=== PATIENT | female | born 1960 | race Caucasian/White ===

== ENCOUNTER → 2020-05-19 | Outpatient (CLI) | payer BC ==
--- NOTE | 2020-05-19 14:35 | Diagnostic Imaging Report ---
Exam: MRI left tibia and fibula without contrast. Date: May 19, 2020. Indication: 60-year-old female, left calf pain. Injured playing tennis. Concern for Achilles tendon tear. Comparison: None. Technique: Multiple noncontrast MRI sequences of the tibia and fibular were obtained. Findings: The Achilles tendon is not particularly optimally evaluated on this study and would be more optimally evaluated on a targeted dedicated MRI ankle exam. That said, there is a complete tear of the Achilles tendon on the left with an estimated length of tendon retraction of 3.5 cm. This is based on cross referencing the axial images. There is feathery edema in the soleus muscle consistent with low-grade muscle strain. There is fairly generalized subcutaneous edema extending from the level of the proximal tibial diaphysis to the level of the tibiotalar joint. There is no well-demarcated drainable focal fluid collection. There is fluid in the popliteal fossa without visualized sizable Mitchell's cyst. The complete superior extent of the popliteal fossa is not in the imaged field of view. The additional imaged tendons are intact in their visualized portions. The additional intramuscular signal is unremarkable. There is no acute fracture, bone contusion, or evidence of osteonecrosis. There is no evidence of stress reaction. Impression: 1. Complete tear of the Achilles tendon with estimated tendon retraction of 3.5 cm. This exam is not the most optimal method for evaluating the Achilles tendon which would be targeted ankle MRI. 2. Low level edema throughout the soleus muscle consistent with low-grade muscle strain. 3. No acute fracture, bone contusion, or evidence of stress reaction. Dictated by: Dictated on workstation # [id number]
== END ==
LOC: RAD 11:14
PROVIDERS: ATTEND Orthopaedic Surgery
DX: S86.012A Strain of left Achilles tendon, initial encounter (principal)

== ENCOUNTER 2020-06-01 14:23 | Emergency (ER) | payer BC ==
[~2020-06-01] VITALS: Ht 162.5 cm; Wt 72.5 kg
[2020-06-01 15:19] LABS: BASOPHILS % (AUTO) 0 % (0-10); EOSINOPHILS # (AUTO) 0.1 10^3/uL (0.0-0.3); EOSINOPHILS % (AUTO) 2 % (0-10); HEMATOCRIT 43 % (35-52); HEMOGLOBIN 14.3 G/DL (11.5-16.0); LYMPHOCYTES # (AUTO) 1.8 X 10^3 (1.0-4.0); LYMPHOCYTES % (AUTO) 30 % (12-44); MEAN CORPUSCULAR HEMOGLOBIN 32 PG (25-34); MEAN CORPUSCULAR HGB CONC 33 G/DL (32-36); MEAN CORPUSCULAR VOLUME 95 FL (80-99); MEAN PLATELET VOLUME 8.9 FL (7.4-10.4); MONOCYTES # (AUTO) 0.5 X 10^3 (0.0-1.0); MONOCYTES % (AUTO) 9 % (0-12); NEUTROPHILS # (AUTO) 3.6 X 10^3 (1.8-7.8); NEUTROPHILS % (AUTO) 60 % (42-75); PLATELET COUNT 357 10^3/uL (130-400)
[2020-06-01] MEDS ORDERED: NS IV 1000 ML 1,000 ML IV ONE (15:20)
[2020-06-01 15:27] LABS: ALBUMIN 4.3 GM/DL (3.2-4.5)
[2020-06-01 15:28] LABS: POTASSIUM 3.7 MMOL/L (3.6-5.0)
[2020-06-01 15:29] LABS: CALCIUM 9.3 MG/DL (8.5-10.1)
[2020-06-01 15:30] LABS: TOTAL PROTEIN 7.7 GM/DL (6.4-8.2)
[2020-06-01 15:32] LABS: BILIRUBIN,TOTAL 0.4 MG/DL (0.1-1.0)
[2020-06-01 15:34] LABS: CREATININE SERUM 1.03 MG/DL (0.60-1.30)
--- NOTE | 2020-06-01 15:35 | NUR ---
BLANKET PROVIDED FOR PATIENT.
[2020-06-01 15:36] LABS: MAGNESIUM 2.2 MG/DL (1.6-2.4)
[2020-06-01 15:37] LABS: FIBRIN DEGRADATION PRODUCTS 0.52 UG/ML (0.00-0.49); INR 0.8 (0.8-1.4)
--- NOTE | 2020-06-01 15:51 | ED Chest Pain ---
General Chief Complaint: Chest Pain Stated Complaint: CP Nursing Triage Note: PATIENT C/ CHEST PAIN AT HOME AROUND 1315 AT THAT TIME VERBAIZES PAIN WAS 9/10 WHICH BEGAN IN THE MIDDLE OF HER CHEST AND WENT THROUGH TO HER BACK, WITH SWEATING, DENIES NAUSEA OR VOMITING. PATIENT RATES HER PAIN AT A 0/10 AT THIS TIME. A/OX4, RESTING IN BED QUIETLY CALL LIGHT IN REACH Nursing Sepsis Screen: No Definite Risk Source: patient Exam Limitations: no limitations History of Present Illness Date Seen by Provider: Jun 01, 2020 Time Seen by Provider: 14:42 Initial Comments Here with report of chest pain that started at around 1:15. States it began in the epigastric and low middle of the chest and radiated straight back and to the right below the shoulder blade. Onset about 45 minutes to an hour after eating lunch. Recently had left Achilles tendon repair and is on full dose aspirin daily. She did take that today. When she had the pain, she called her doctor recommended she come to the emergency department. She had negative COVID-19 screening last and has been at home otherwise since. Her adult children did visit from [place] on Friday. Nobody in the family is sick and she is otherwise not left the house. Still has her gallbladder. No history of cardiac disease. Pain onset associated with sweating but all of that has resolved since prior to arrival. Pain lasted about 45 minutes. No nausea or vomiting. No reported diarrhea or problems went to the bathroom. Otherwise been doing fine since the surgery. Timing/Duration: 1 hour, resolved prior to arrival Severity/Quality: moderate, aching Location: central Radiation: back Prior CP/Workup: no prior chest pain, no prior cardiac workup, non-cardiac ASA po SPRAY DYER: Yes NTG SL SPRAY DYER: No Associated Symptoms: abdominal pain, back pain, diaphoresis; No fever/chills, No nausea/vomiting, No shortness of breath, No weakness Allergies and Home Medications Allergies Coded Allergies: Penicillins (Verified Allergy, Unknown, 06/01/20) Sulfa (Sulfonamide Antibiotics) (Verified Allergy, Unknown, 06/01/20) amoxicillin (Verified Allergy, Unknown, 06/01/20) cephalexin (Verified Allergy, Unknown, 06/01/20) clindamycin (Verified Allergy, Unknown, 06/01/20) dexamethasone (Verified Allergy, Unknown, 06/01/20) ibuprofen (Verified Adverse Reaction, Unknown, 06/01/20) CANNOT TAKE naproxen (Verified Adverse Reaction, Unknown, 06/01/20) CANNOT TAKE Home Medications Aspirin 325 Mg Tablet, 325 MG PO DAILY, (Reported) Patient Home Medication List Home Medication List Reviewed: Yes Review of Systems Review of Systems Constitutional: see HPI EENTM: No Symptoms Reported Respiratory: Denies Cough, Denies Shortness of Air Cardiovascular: Chest Pain; Denies Edema Gastrointestinal: Denies Diarrhea, Denies Nausea, Denies Vomiting Genitourinary: No Symptoms Reported Musculoskeletal: see HPI, other (left lower extremity splint noted) Skin: no symptoms reported Psychiatric/Neurological: No Symptoms Reported All Other Systems Reviewed Negative Unless Noted: Yes Past Pcyjyvg-Ibvbjo-Zqopcz Hx Past Med/Social Hx: Reviewed Nursing Past Med/Soc Hx Patient Social History Alcohol Use: Regular Use Alcohol Beverage of Choice: Wine Recreational Drug Use: No Smoking Status: Never a Smoker 2nd Hand Smoke Exposure: No Recent Foreign Travel: No Contact w/Someone Who Travel: No Recent Infectious Disease Expo: No Physical Abuse: No Sexual Abuse: No Mistreated: No Fear: No Past Medical History Surgeries: Yes Appendectomy, Hysterectomy, Orthopedic Respiratory: No Cardiac: No Neurological: No Family Medical History Reviewed Nursing Family Hx No Pertinent Family Hx Physical Exam Vital Signs Vital Signs - First Documented 06/01/20 14:30 Temp 36.7 Pulse 92 Resp 18 B/P (MAP) 157/90 (112) Pulse Ox 98 O2 Delivery Room Air Capillary Refill : Less Than 3 Seconds Height, Weight, BMI Height: '" Weight: lbs. oz. kg; 27.00 BMI Method: General Appearance: No Apparent Distress, WD/WN Neck: Non Tender, Supple Respiratory: Lungs Clear, Normal Breath Sounds Cardiovascular: Regular Rate, Rhythm, No Murmur Gastrointestinal: Normal Bowel Sounds, No Pulsatile Mass, Non Tender, Soft Extremity: No Calf Tenderness, No Pedal Edema, Other (left leg splint from just below knee to toes) Neurologic/Psychiatric: Alert, Oriented x3 Skin: Normal Color, Warm/Dry Progress/Results/Core Measures Results/Orders Lab Results Laboratory Tests Test 06/01/20 15:01 Range/Units White Blood Count 6.0 4.3-11.0 10^3/uL Red Blood Count 4.54 4.35-5.85 10^6/uL Hemoglobin 14.3 11.5-16.0 G/DL Hematocrit 43 35-52 % Mean Corpuscular Volume 95 80-99 FL Mean Corpuscular Hemoglobin 32 25-34 PG Mean Corpuscular Hemoglobin Concent 33 32-36 G/DL Red Cell Distribution Width 13.0 10.0-14.5 % Platelet Count 357 130-400 10^3/uL Mean Platelet Volume 8.9 7.4-10.4 FL Neutrophils (%) (Auto) 60 42-75 % Lymphocytes (%) (Auto) 30 12-44 % Monocytes (%) (Auto) 9 0-12 % Eosinophils (%) (Auto) 2 0-10 % Basophils (%) (Auto) 0 0-10 % Neutrophils # (Auto) 3.6 1.8-7.8 X 10^3 Lymphocytes # (Auto) 1.8 1.0-4.0 X 10^3 Monocytes # (Auto) 0.5 0.0-1.0 X 10^3 Eosinophils # (Auto) 0.1 0.0-0.3 10^3/uL Basophils # (Auto) 0.0 0.0-0.1 10^3/uL Prothrombin Time 12.0 L 12.2-14.7 SEC INR Comment 0.8 0.8-1.4 Activated Partial Thromboplast Time 29 24-35 SEC D-Dimer 0.52 H 0.00-0.49 UG/ML Sodium Level 140 135-145 MMOL/L Potassium Level 3.7 3.6-5.0 MMOL/L Chloride Level 107 98-107 MMOL/L Carbon Dioxide Level 20 L 21-32 MMOL/L Anion Gap 13 5-14 MMOL/L Blood Urea Nitrogen 14 7-18 MG/DL Creatinine 1.03 0.60-1.30 MG/DL Estimat Glomerular Filtration Rate 55 BUN/Creatinine Ratio 14 Glucose Level 127 H 70-105 MG/DL Calcium Level 9.3 8.5-10.1 MG/DL Corrected Calcium 9.1 8.5-10.1 MG/DL Magnesium Level 2.2 1.6-2.4 MG/DL Total Bilirubin 0.4 0.1-1.0 MG/DL Aspartate Amino Transf (AST/SGOT) 129 H 5-34 U/L Alanine Aminotransferase (ALT/SGPT) 75 H 0-55 U/L Alkaline Phosphatase 100 40-136 U/L Myoglobin 23.9 10.0-92.0 NG/ML Troponin I < 0.028 <0.028 NG/ML C-Reactive Protein High Sensitivity 0.11 0.00-0.50 MG/DL Total Protein 7.7 6.4-8.2 GM/DL Albumin 4.3 3.2-4.5 GM/DL Lipase 65 8-78 U/L My Orders Orders - LISSETT FOLEY MD Cbc With Automated Diff (06/01/20 14:41) Magnesium (06/01/20 14:41) Chest 1 View, Ap/Pa Only (06/01/20 14:41) Ekg Tracing (06/01/20 14:41) Comprehensive Metabolic Panel (06/01/20 14:41) Myoglobin Serum (06/01/20 14:41) Protime With Inr (06/01/20 14:41) Partial Thromboplastin Time (06/01/20 14:41) O2 (06/01/20 14:41) Monitor-Rhythm Ecg Trace Only (06/01/20 14:41) Lipid Panel (06/02/20 06:00) Ed Iv/Invasive Line Start (06/01/20 14:41) Lipase (06/01/20 14:41) Troponin I (06/01/20 14:41) Ns Iv 1000 Ml (Sodium Chloride 0.9%) (06/01/20 15:20) Us Gallbladder 88[address] (06/01/20 15:20) Hs C Reactive Protein (06/01/20 15:22) Fibrin Degradation Products (06/01/20 15:01) Medications Given in ED Current Medications Medications Dose Ordered Sig/Karen Route Start Time Stop Time Status Last Admin Dose Admin Sodium Chloride 1,000 ml @ 0 mls/hr Q0M ONCE IV 06/01/20 15:20 06/01/20 15:21 DC 06/01/20 15:40 1,000 MLS/HR Vital Signs/I&O 06/01/20 06/01/20 14:30 14:30 Temp 36.7 Pulse 92 Resp 18 B/P (MAP) 157/90 (112) Pulse Ox 98 O2 Delivery Room Air Blood Pressure Mean: 112 Progress Progress Note : Progress Note Seen and evaluated. Patient has had full dose aspirin already today so no aspirin given. Patient is pain-free currently so no nitroglycerin given. Chest pain protocol initiated including labs and EKG. Did have recent surgery so we will add d-dimer as she is borderline tachycardic. This may be from dehydration. Normal saline 1 L bolus ordered. Presentation could indicate gallbladder disease so we will order a gallbladder ultrasound. Low risk for COVID-19 at this point. Monitor patient. 1650: Ultrasound complete and results noted. On speaking with the tech, he indicated that stone was noted and I believe this is the echogenic foci discussed in the report a low. On reviewing the imaging it does appear that there is a gallstone. This would account for the patient's pain. She is currently pain-free with no indication of infection, cardiac dysfunction or blood clot. No indication for cholecystitis. I did discuss case with Dr. Garner and he believes she is low risk for cardiac disease and also agrees with concerns for gallbladder. I did discuss it with the patient and she would like to follow-up with Dr. Basurto. I did discuss the case with Dr. Basurto and he will happily see her as needed and knows the family well. Instructed for her to call the office for appointment for next week for just call here his and he'll set her up. Also wanted me to discuss return precautions which were done. Discharged home with return precautions. Patient verbalize understanding instructions and agreement with plan. Initial ECG Impression Date: Jun 01, 2020 Initial ECG Impression Time: 14:57 Initial ECG Rate: 83 Initial ECG Rhythm: Normal Sinus Initial ECG Comparisson: No Previous ECG Available Comment Sinus rhythm with normal axis. No evidence of ST elevation KS. No previous available for comparison. Interpreted by me. Diagnostic Imaging Diagonstic Imaging: Xray Plain Films/CT/US/NM/MRI: chest Comments [facility] [place], [place] NAME: BRENDASWETHA Galileo [facility] REC#: [id number] PT STATUS: REG ER : 1960 PHYSICIAN: LISSETT FOLEY MD ADMIT DATE: 06/01/20/ER Signed Date of Exam:06/01/20 CHEST 1 VIEW, AP/PA ONLY Indication: Chest pain Portable chest 3:39 PM There is calcified granuloma in the right lower lung. Heart size and pulmonary vascularity are normal. Lungs are clear. There are no effusions or pneumothoraces. IMPRESSION: No acute abnormalities the chest Dictated by: Dictated on workstation # [id number] Dict: 06/01/20 1605 Trans: 06/01/20 1606 [id number] Interpreted by: LISSETT GAN MD Electronically signed by: LISSETT GAN MD 06/01/20 1606 Diagonstic Imaging: Ultrasound Plain Films/CT/US/NM/MRI: abdomen Comments NAME: SWETHA GUTIERREZ [facility] REC#: [id number] PT STATUS: REG ER : 1960 PHYSICIAN: LISSETT FOLEY MD ADMIT DATE: 06/01/20/ER Draft Date of Exam:06/01/20 US GALLBLADDER [id number] INDICATION: Chest and abdominal pain. Gallbladder sonography is performed in the routine fashion. The liver shows normal echogenicity with no focal lesions. Portal vein is patent with hepatopetal flow. Gallbladder appears partially contracted. Evaluation of the gallbladder wall is therefore limited. There are questionable echogenic foci in the gallbladder wall (emphasis added). Common duct measures 7 mm. Pancreas is unremarkable. The aorta and IVC are unremarkable to their visualized extent. The right kidney measures 10.8 cm in length and appears normal. Sonographic Daigle's sign is negative. IMPRESSION: Gallbladder is partially contracted. There is questionable wall thickening which may be due to contracted state. Recommend follow-up study after prolonged fasting for further evaluation. Common duct is borderline prominent measuring 7 mm. Dictated on workstation # [id number] Dict: 06/01/20 1640 Trans: 06/01/20 1646 [id number] Interpreted by: KEVIN SU MD Electronically signed by: Reviewed: Reviewed by Me Departure Impression Primary Impression: Gallstones without obstruction of gallbladder Qualified Codes: K80.20 - Calculus of gallbladder without cholecystitis without obstruction Disposition: 01 HOME, SELF-CARE Condition: Improved Departure-Patient Inst. Decision time for Depature: 16:45 Referrals: JUDY GARNER MD (PCP/Family) Primary Care Physician STACEY BASURTO MD Patient Instructions: Gallstones (DC), Gallbladder Diet Add. Discharge Instructions: All discharge instructions reviewed with patient and/or family. Voiced understanding. You have a gallstone which will cause pain if you eat a fatty diet. You should avoid fatty foods in keep to a low-fat diet. Call Dr. Basurto for appointment next week. He said you may call his office or call his and he will get you set up. Drink plenty of fluids. Return for worse pain, fever, persistent pain, breathing problems or other concerns as needed. Continue home meds as previously prescribed. Copy Copies To 1: STACEY BASURTO MD Copies To 2: JUDY GARNER MD, TIMOTHY D MD Jun 01, 2020 15:51
--- NOTE | 2020-06-01 15:55 | NUR ---
CAMILLA FROM ULTRASOUND HERE TO COMPLETE TESTING.
[2020-06-01] MEDS ORDERED: ASPI-808 PO (16:03)
--- NOTE | 2020-06-01 16:07 | Diagnostic Imaging Report ---
Indication: Chest pain Portable chest 3:39 PM There is calcified granuloma in the right lower lung. Heart size and pulmonary vascularity are normal. Lungs are clear. There are no effusions or pneumothoraces. IMPRESSION: No acute abnormalities the chest Dictated by: Dictated on workstation # [id number]
--- NOTE | 2020-06-01 16:30 | NUR ---
ASSISTED PATIENT TO THE RESTROOM
--- NOTE | 2020-06-01 16:35 | NUR ---
ASSISTED PATIENT BACK TO BED, BLANKET PROVIDED, CALL LIGHT IN REACH, MONITORING MAINTAINED.
--- NOTE | 2020-06-01 16:46 | Diagnostic Imaging Report ---
INDICATION: Chest and abdominal pain. Gallbladder sonography is performed in the routine fashion. The liver shows normal echogenicity with no focal lesions. Portal vein is patent with hepatopetal flow. Gallbladder appears partially contracted. Evaluation of the gallbladder wall is therefore limited. There are questionable echogenic foci in the gallbladder wall. Common duct measures 7 mm. Pancreas is unremarkable. The aorta and IVC are unremarkable to their visualized extent. The right kidney measures 10.8 cm in length and appears normal. Sonographic Daigle's sign is negative. IMPRESSION: Gallbladder is partially contracted. There is questionable wall thickening which may be due to contracted state. Recommend follow-up study after prolonged fasting for further evaluation. Common duct is borderline prominent measuring 7 mm. Dictated by: Dictated on workstation # [id number]
[2020-06-01 17:10] VITALS: BP 155/86
--- OUTSIDE RECORDS SUMMARY | 2020-06-01 17:23 | XMS REPORT | Continuity of Care Document ---
Author Organization Unknown Address Unknown Phone Unavailable Allergies There is no data. Medications There is no data. Problems Date Dx Coded Attending Type Code Diagnosis Diagnosed By 05/22/2020 JACOB PERALTA, DORIS Flores Ot S86.012A STRAIN OF LEFT ACHILLES TENDON, INITIAL Procedures There is no data. Results Test Result Range Complete blood count (CBC) with automate d white blood cell (WBC) differential - 06/01/20 15:01 Blood leukocytes automated count (number/volume) 6.0 10*3/uL 4.3-11.0 Blood erythrocytes automated count (number/volume) 4.54 10*6/uL 4.35-5.85 Venous blood hemoglobin measurement (mass/volume) 14.3 g/dL 11.5-16.0 Blood hematocrit (volume fraction) 43 % 35-52 Automated erythrocyte mean corpuscular volume 95 [ foz_us] 80-99 Automated erythrocyte mean corpuscular h emoglobin (mass per erythrocyte) 32 pg 25-34 Automated erythrocyte mean corpuscular h emoglobin concentration measurement (mass/volume) 33 g/dL 32-36 Automated erythrocyte distribution width ratio 13. 0 % 10.0- 14.5 Automated blood platelet count (count/volume) 357 10*3/uL 130-400 Automated blood platelet mean volume measurement 8.9 [foz_us] 7.4-10.4 Automated blood neutrophils/100 leukocytes 60 % 42-75 Automated blood lymphocytes/100 leukocytes 30 % 12-44 Blood monocytes/100 leukocytes 9 % 0-12 Automated blood eosinophils/100 leukocytes 2 % 0-10 Automated blood basophils/100 leukocytes 0 % 0-10 Blood neutrophils automated count (number/volume) 3.6 10*3 1.8-7.8 Blood lymphocytes automated count (number/volume) 1.8 10*3 1.0-4.0 Blood monocytes automated count (number/volume) 0. 5 10*3 0.0-1.0 Automated eosinophil count 0.1 10*3/uL 0 .0-0.3 Automated blood basophil count (count/volume) 0.0 10*3/uL 0.0-0.1 Comprehensive metabolic panel - 06/01/20 15:01 Serum or plasma sodium measurement (moles/volume) 140 mmol/L 135-145 Serum or plasma potassium measurement (moles/volume) 3.7 mmol/L 3.6-5.0 Serum or plasma chloride measurement (moles/volume) 107 mmol/L 98-107 Carbon dioxide 20 mmol/L 21-32 Serum or plasma anion gap determination (moles/volume) 13 mmol/L 5-14 Serum or plasma urea nitrogen measurement (mass/volume ) 14 mg/dL 7-18 Serum or plasma creatinine measurement (mass/volume) 1.03 mg/dL 0.60-1.30 Serum or plasma urea nitrogen/creatinine mass ratio 14 NRG Serum or plasma creatinine measurement w ith calculation of estimated glomerular filtration rate 55 NRG Serum or plasma glucose measurement (mass/volume) 127 mg/dL 70-105 Serum or plasma calcium measurement (mass/volume) 9.3 mg/dL 8.5-10.1 Serum or plasma total bilirubin measurement (mass/volu me) 0.4 mg/dL 0.1-1.0 Serum or plasma alkaline phosphatase brittanie surement (enzymatic activity/volume) 100 U/L 40-136 Serum or plasma aspartate aminotransfera se measurement (enzymatic activity/volume) 129 U/L 5-34 Serum or plasma alanine aminotransferase measurement (enzymatic activity/volume) 75 U/L 0-55 Serum or plasma protein measurement (mass/volume) 7.7 g/dL 6.4-8.2 Serum or plasma albumin measurement (mass/volume) 4.3 g/dL 3.2-4.5 CALCIUM CORRECTED 9.1 mg/dL 8.5-10.1 Magnesium - 06/01/20 15:01 Magnesium 2.2 mg/dL 1.6-2.4 Myoglobin, serum - 06/01/20 15:01 Myoglobin, serum 23.9 ng/mL 10.0-92.0 Serum or plasma troponin i.cardiac measu rement (mass/volume) - 06/01/20 15:01 Serum or plasma troponin i.cardiac measurement (mass/v olume) < ng/mL <0.028 Serum or plasma C reactive protein measu rement (mass/volume) - 06/01/20 15:01 Serum or plasma C reactive protein measurement (mass/v olume) 0.11 mg/dL 0.00-0.50 Lipase - 06/01/20 15:01 Lipase 65 U/L 8-78 PT panel in platelet poor plasma by coag ulation assay - 06/01/20 15:01 Prothrombin time (PT) in platelet poor plasma by coagu lation assay 12.0 s 12.2-14.7 INR in platelet poor plasma or blood by coagulation as say 0.8 0.8-1.4 Activated partial thromboplastin time (a PTT) in platelet poor plasma bycoagulation assay - 06/01/20 15:01 Activated partial thromboplastin time (a PTT) in platelet poor plasma bycoagulation assay 29 s 24-35 Fibrin D-dimer FEU measurement in platel et poor plasma (mass/volume) - 06/01/20 15:01 Fibrin D-dimer FEU measurement in platelet poor plasma (mass/volume) 0.52 ug/mL 0.00-0.49 Encounters ACCT No. Visit Date/Time Discharge Status Pt. Type Provider Facility Loc./Unit Complaint [id number] 05/19/2020 11:14:00 020 23:59:59 CLS Outpatient JACOB PERALTA, DORIS Flores [facility] RAD STRAIN OF LT ACHILLES TENDON [id number] 06/01/2020 15:20:00 Document Registration
== END 2020-06-01 17:09 | disposition home or self-care (01) ==
LOC: EDUNIT# 14:23 → ER 14:26
DX: K80.20 Calculus of gallbladder without cholecystitis without obstruction (principal); Z88.0 Allergy status to penicillin; Z88.2 Allergy status to sulfonamides; Z88.1 Allergy status to other antibiotic agents; Z88.6 Allergy status to analgesic agent; Z88.8 Allergy status to other drugs, medicaments and biological substances; Z79.82 Long term (current) use of aspirin
CPT/HCPCS: 36415; 71045; 76705; 80053; 83690; 83735; 83874; 84484; 85025; 85379; 85610; 85730; 86141; 93041

== ENCOUNTER → 2023-10-06 | Outpatient (CLI) | payer BC, SELFPAY ==
[~2023-10-06] MED LIST: ASPI-808 PO
--- NOTE | 2023-10-06 17:29 | Diagnostic Imaging Report ---
CT CARDIAC CALCIUM SCORE INDICATION: Hypertension. Cardiovascular atherosclerotic disease assessment. COMPARISON: None available. TECHNIQUE: Limited CT of the chest was performed without contrast per the coronary artery calcium score. FINDINGS: Total coronary calcium score is 0. No pericardial effusion is present. There are calcified hilar and mediastinal lymph nodes from old granulomatous infection. No suspicious nodule within the visualized lungs. IMPRESSION: Total coronary artery calcium score 0. Dictated by: Dictated on workstation # [id number]
== END ==
LOC: RAD 10:50
PROVIDERS: ATTEND Internal Medicine
DX: I10 Essential (primary) hypertension (principal); I25.10 Atherosclerotic heart disease of native coronary artery without angina pectoris
CPT/HCPCS: 75571